=== PATIENT | female | born 1990 | race Caucasian/White ===

== ENCOUNTER 2018-08-23 21:43 | Emergency (ER) | payer OTHER, MEDICAID, SELFPAY ==
--- NOTE | 2018-08-23 21:50 | DI.RAD.S_ITS ---
PROCEDURE: XR ANKLE LT MIN 3V INDICATIONS: pain after twist TECHNIQUE: 3 views of the ankle were acquired. COMPARISON: [facility], CR, ANKLE MIN 3VW (RT), 06/28/2013, 10:10. [facility], CR, ANKLE MIN 3VW (RT), 11/09/2008, 17:57. FINDINGS: Bones: Subtle 3 mm linear calcific density projecting along the lateral aspect of the hindfoot. No definite donor site seen. Cannot entirely exclude cortical avulsion fracture fragment. Elsewhere, no fractures or dislocations. Ankle mortise is normally aligned. No suspicious bony lesions. Soft tissues: No tibiotalar joint effusion. Achilles tendon appears normal. IMPRESSION: Questionable, subtle cortical fracture fragment along the lateral aspect of the hindfoot, although technically indeterminate. Please correlate clinically 2 point tenderness and if there is sufficient clinical suspicion, repeat radiographs in 10 days could be obtained. Elsewhere, no fracture. Dictated by: Berlin Barlow M.D. on 08/24/2018 at 8:01 Approved by: Berlin Barlow M.D. on 08/24/2018 at 8:04
--- NOTE | 2018-08-23 21:52 | ED.LOWEXIN ---
HPI - Extremity Injury (Lower) General Chief Complaint: Extremity Injury, Lower Stated Complaint: LT ANKLE INJURY Time Seen by Provider: 08/23/18 21:50 Source: patient Mode of arrival: ambulatory Limitations: no limitations History of Present Illness HPI Narrative: 28-year-old female who is here for evaluation of left ankle injury. She states she was going down a flight of stairs were she best last step and inverted her left ankle. Has been unable to ambulate on it since then. Has pain on the outside of her ankle. No prior injury. Did not hit her head. Review of Systems Constitutional Denies fever(s) Cardiovascular Denies chest pain and Denies dyspnea Respiratory Denies dyspnea Gastrointestinal Gastrointestinal: Denies abdominal pain Genitourinary Denies dysuria Musculoskeletal Denies tingling Comments: Left ankle injury Integumentary/Breasts Denies lesions and Denies rash Neurologic Denies sensory deficit, Denies tingling and Denies paresthesias Hematologic/Lymphatic Comments: Not on anticoagulation PFSH Medical History Healthy adult (Acute) Surgical History No pertinent past surgical history (Acute) Social History Smoking Status: Never smoker Exam Initial Vital Signs Initial Vital Signs: Vital Signs Temperature 97.1 F L 08/23/18 21:56 Pulse Rate 88 08/23/18 21:56 Respiratory Rate 18 08/23/18 21:56 Blood Pressure 107/69 08/23/18 21:56 Pulse Oximetry 100 08/23/18 21:56 Const General: cooperative, healthy appearing, comfortable, well developed, well groomed and No acute distress Orientation: alert, awake and oriented x3 HENMT Head: normal to inspection and normocephalic Resp Effort & Inspection: normal respiratory effort Cardio Rate: regular rate Pulses: dorsalis pedis present on the left GI Inspection: non-distended Palpation: soft Skin Lesions: no lesions Rashes: no rashes Neuro Motor: muscle tone normal throughout Sensory Exam: no sensory deficits noted Extrem General: normal to inspection and capillary refill normal Other: No proximal fibula tenderness on the left. Tender to palpation inferior posterior to the lateral malleolus. Does have some tenderness to palpation inferior to the medial malleolus. Rest of the foot and ankle unremarkable. Psych Appearance: grossly normal and well kempt Course Orders Ordered: ED Orders 08/23/18 21:50 XR ankle LT min 3V Stat Vital Signs - 8 hr 08/23/18 21:56 08/23/18 23:33 Temperature 97.1 F L Pulse Rate 88 84 Respiratory Rate 18 18 Blood Pressure 107/69 110/70 Pulse Oximetry 100 98 MDM - Extremity Injury (Lower) Imaging Data X-ray ankle: Attestation: I personally reviewed and interpreted this imaging study as follows: My impression: No fractures No dislocations MDM Narrative Medical decision making narrative: Neurovascular intact No fractures noted on the x-ray. Patient limited to Tylenol secondary to her status. Was given an Samuel bandage and crutches here. She was instructed that she can walk on her ankle as needed. She was given return precautions. She expressed understanding and agreement with plan. Discharge Plan Departure Patient Disposition: Home Clinical Impression: Left ankle sprain Discharge Date/Time: 08/23/18 23:36 Interventions: ED Discharge Assessment Last Done: 08/23/18 23:33 Instructions: DI for Ankle Sprain, How To Perform RICE (Rest, Ice, Compress, Elevate) Activity Restrictions/Additional Instructions: You can take Tylenol for any discomfort. Keep your leg elevated. Use ice as needed. Use the crutches as needed however you can put weight on your ankle. Return to the emergency department for any new or worsening symptoms Stand Alone Forms: Work Release Note
[2018-08-23 21:56] VITALS: BP 107/69; PULSE 88; RESP 18; TEMP 36.2; O2SAT 100; BMI 22.4
--- NOTE | 2018-08-23 23:32 | PC.NURSE ---
steph wrap to left ankle.cms intact.
[2018-08-23 23:33] VITALS: BP 110/70; PULSE 84; RESP 18; O2SAT 98
== END 2018-08-23 23:36 | disposition home or self-care (01) ==
PROVIDERS: Emergency Provider Emergency Medicine
DX: S93.402A Sprain of unspecified ligament of left ankle, initial encounter (principal); W18.43XA Slipping, tripping and stumbling without falling due to stepping from one level to another, initial encounter
CPT/HCPCS: 73610; 99282; 99283

== ENCOUNTER 2019-12-07 17:25 | Emergency (ER) | payer OTHER, MEDICAID, SELFPAY ==
[2019-12-07 17:33] VITALS: BP 102/65; PULSE 81; RESP 16; TEMP 36.6; O2SAT 99; BMI 19.2
--- NOTE | 2019-12-07 17:54 | ED_ITS ---
HPI - General Adult General Chief complaint: Upper Respiratory Symptoms Stated complaint: states sinus infection,cough,thinks arm pit infect Time Seen by Provider: 12/07/19 17:25 Source: patient Mode of arrival: Ambulatory Limitations: no limitations History of Present Illness HPI narrative: 29-year-old female here for evaluation of sinus congestion, sore throat, postnasal drip for the past 3 days. Has taken Tylenol cold and Sinus without any improvement. Also is complaining of a rash under her right armpit. She states she cut her arm while shaving a couple days ago. Has been using a topical antibiotic ointment without any improvement. She states that she notes it is very itchy. Related Data Previous Rx's Medication Instructions Recorded amoxicillin 500 mg PO BID 7 Days #14 cap 12/07/19 nystatin 1 applictn TOP TID #15 gram 12/07/19 Allergies Allergy/AdvReac Type Severity Reaction Status Date / Time acetaminophen [From Vicodin] Allergy Severe Itchy, Verified 09/02/18 16:43 rash adhesive tape Allergy Severe Skin break Verified 09/02/18 16:43 down hydrocodone [From Vicodin] Allergy Severe Itchy, Verified 09/02/18 16:43 rash Review of Systems Constitutional Constitutional: Denies fever(s) ENT Ears, Nose, Mouth, and Throat: Denies vertigo, Denies dizziness, Reports post nasal drip, Reports sinus pressure and Reports sore throat Comments: Sinus congestion Cardiovascular Cardiovascular: Denies chest pain and Denies dyspnea Respiratory Respiratory: Denies dyspnea Integumentary/Breasts Skin/Breast: Reports rash (Right armpit) Neurologic Neurologic: Denies behavioral changes, Denies vertigo and Denies dizziness Psychiatric Psychiatric: Denies behavioral changes Patient History Medical History Healthy adult (Acute) Surgical History No pertinent past surgical history (Acute) Social History Smoking Status: Never smoker Smoking Status: Never smoker alcohol intake frequency: 0-2 drinks per day Substance Use Type: does not use Exam Initial Vital Signs Initial Vital Signs: Vital Signs Temperature 97.8 F 12/07/19 17:33 Pulse Rate 81 12/07/19 17:33 Respiratory Rate 16 04/04/20 17:33 Blood Pressure 102/65 12/07/19 17:33 Pulse Oximetry 99 12/07/19 17:33 Const General: cooperative, comfortable, well developed and well groomed Limitations: mental status not altered [facility] Head: normal to inspection and normocephalic Ears: TM's normal bilaterally Nose: external nose normal Mouth: oral mucosae normal Throat: postnasal drainage Resp Effort & Inspection: normal respiratory effort Auscultation: clear to auscultation bilaterally Cardio Rate: regular rate Rhythm: regular rhythm Skin Other: Patient with a round area of erythema in her right armpit that does not light up under a Wood's lamp. No vesicles. No pustules. No breaks in the sk in. No surrounding erythema. Neuro General: alert, awake and oriented x3 Course Vital Signs Vital signs: Vital Signs - 8 hr 12/07/19 17:33 Temperature 97.8 F Pulse Rate 81 Respiratory Rate 16 Blood Pressure 102/65 Pulse Oximetry 99 Medical Decision Making MDM Narrative Medical decision making narrative: Patient does have signs of an upper respiratory infection with postnasal drip. Has only had symptoms for the past 3 days. We did discuss the use of decongestants at home to include Claritin and Flonase. She expressed understanding of this. I will give her prescription for antibiotics however she will hold on this into the other medications initially if this does not improve in the next week she will start taking the antibiotics. The redness under her right arm does not appear to be cellulitis. It does not light up under a Wood's lamp however does have very strong appearance of a fungal infection. Will start on a topical medication. We discussed return precautions and follow-up instructions with this. She expressed understanding and agreement. Discharge Plan Departure Patient Disposition: Home Clinical Impression: Skin rash Upper respiratory infection Qualifiers: URI type: unspecified URI Qualified Code(s): J06.9 - Acute upper respiratory infection, unspecified Instructions: DI for Rash Activity Restrictions/Additional Instructions: I do recommend that before you take the antibiotics that you try decongestant such as Claritin or Lynda or Zyrtec or the generic version of these medications. Also start taking either Flonase or Nasonex like we discussed. If your symptoms are not improved within the next week start taking the antibiotics as directed. Use the topical antifungal like we discussed. Return to the emergency department for any new or worsening symptoms Prescriptions: New amoxicillin 500 mg capsule 500 mg PO BID 7 Days Qty: 14 RF: 0 nystatin 100,000 unit/gram cream 1 applictn TOP TID Qty: 15 RF: 0
== END 2019-12-07 18:04 | disposition home or self-care (01) ==
PROVIDERS: Emergency Provider Emergency Medicine
DX: J06.9 Acute upper respiratory infection, unspecified (principal); R21 Rash and other nonspecific skin eruption
CPT/HCPCS: 99281; 99282

== ENCOUNTER 2020-10-19 13:46 | Emergency (ER) | payer OTHER, MEDICAID, SELFPAY ==
[2020-10-19 13:55] VITALS: BP 107/70; PULSE 82; RESP 16; TEMP 35.9; O2SAT 100; BMI 20.5
== END 2020-10-19 14:51 | disposition left against medical advice (07) ==
PROVIDERS: Emergency Provider Emergency Medicine; PCP Family Medicine
CPT/HCPCS: 99281

== ENCOUNTER 2021-01-20 21:52 | Emergency (ER) | payer OTHER, MEDICAID, SELFPAY ==
[2021-01-20 22:42] VITALS: BP 122/65; PULSE 76; RESP 18; TEMP 37; O2SAT 99; BMI 21.0
[2021-01-21] MEDS: valACYclovir 500 MG TABLET 1000 MG PO (00:04)
--- NOTE | 2021-01-21 05:18 | ED.SKABFB ---
HPI - Skin/Abscess/Foreign Bdy General Chief complaint: Skin/Abscess/Foreign Body Stated complaint: blisters on face & scalp Time Seen by Provider: 01/20/21 23:14 Source: patient Mode of arrival: Ambulatory Limitations: no limitations History of Present Illness HPI narrative: 30-year-old woman with no significant medical history presents complaining of a rash on the lower side of her left cheek. She used a new dermatologic product with salicylic acid in that last night and woke up in the middle night with burning pain in the lower portion of her face. She notes that she has been under increased stressors over the last 2 days. She has a history of mild acne. She describes no fevers or general myalgias. No cough, abdominal pain dysuria vomiting, diarrhea palpitations or chest pain. Related Data Previous Rx's Medication Instructions Recorded nystatin 1 applictn TOP TID #15 gram 12/07/19 valacyclovir 1,000 mg PO TID #21 tab 01/20/21 Allergies Allergy/AdvReac Type Severity Reaction Status Date / Time acetaminophen [From Vicodin] Allergy Severe Itchy, Verified 01/20/21 22:42 rash adhesive tape Allergy Severe Skin break Verified 01/20/21 22:42 down hydrocodone [From Vicodin] Allergy Severe Itchy, Verified 01/20/21 22:42 rash Review of Systems Review of Systems Narrative: Remainder of complete review of systems is otherwise unremarkable except for that included in the HPI. Patient History Medical History Healthy adult Surgical History H/O hysterectomy for benign disease Social History Smoking Status: Never smoker Smoking Status: Never smoker alcohol intake frequency: 0-2 drinks per day Substance Use Type: does not use Exam Narrative Exam Narrative: General: Alert appropriate in no acute distress Respiratory: Able to speak in full sentences, no obvious respiratory distress Cardiac exam: Regular rate and rhythm no murmurs Skin: Mild acne scars over her face. The left lower face in the V1 distribution she has a collection of fascicular lesions on an erythematous base that appear to be herpetic in nature. There is no involvement in the mid face or upper face. Neck: She has minor left-sided cervical adenopathy Neurologic: Grossly intact no obvious asymmetries or abnormalities Psych: appropriate insight and affect, cooperative Initial Vital Signs Initial Vital Signs: Vital Signs Temperature 98.6 F 01/20/21 22:42 Pulse Rate 76 01/20/21 22:42 Respiratory Rate 18 01/20/21 22:42 Blood Pressure 122/65 01/20/21 22:42 Pulse Oximetry 99 01/20/21 22:42 Course Orders Ordered: Discontinued Medications Valacyclovir HCl (Valacyclovir 500 Mg Tablet) 1,000 mg PO NOW ONE Stop: 01/20/21 23:43 Last Admin: 01/21/21 00:04 Dose: 1,000 mg Documented by: ANUSHA Vital Signs Vital signs: Vital Signs - 8 hr 01/20/21 22:42 Temperature 98.6 F Pulse Rate 76 Respiratory Rate 18 Blood Pressure 122/65 Pulse Oximetry 99 MDM - Skin/Abscess/Foreign Bdy MDM Narrative Medical decision making narrative: 30-year-old woman with newly developing clustered vesicular lesions in a V1 distribution left side of her face consistent with zoster. She has been under increased stressors lately but has no other significant medical issues. She notes that she does have herpes lesion with occasional breakouts on the right side of her upper lip that is not currently bothering her. She will be started on valacyclovir and is carefully cautioned about the Infectious Disease nature of shingles and the fact that she can not usually give her children chickenpox from the vesicular fluid. She states clear understanding of this. She is safe for home discharge Discharge Plan Departure Patient Disposition: Home Clinical Impression: Herpes zoster Qualifiers: Herpes zoster complications: without complications Qualified Code(s): B02.9 - Zoster without complications Instructions: DI for Shingles Activity Restrictions/Additional Instructions: It looks like you are developing shingles. As the lesions turn into little blisters, the liquid inside the blisters is very contagious for chickenpox. Please make sure that you keep your children away from your face and you wash her hands after you touch her face. Use the entire course of Valacyclovir to reduce the risk of complications. The prescription has been electronically transmitted to [facility] for you to cook pickled meat tomorrow Using 400 mg of ibuprofen (2 [id number] pills) and 1 Tylenol every 6 hours can be very helpful in controlling pain. Prescriptions: New valacyclovir 1 gram tablet 1,000 mg PO TID Qty: 21 RF: 0 No Action nystatin 100,000 unit/gram cream 1 applictn TOP TID Qty: 15 RF: 0 Referrals: Yelena Fierro DO [Primary Care Provider] -
== END 2021-01-21 00:11 | disposition home or self-care (01) ==
PROVIDERS: Emergency Provider Emergency Medicine; PCP Family Medicine
DX: B02.9 Zoster without complications (principal)
CPT/HCPCS: 99283

== ENCOUNTER 2021-04-06 01:55 | Emergency (ER) | payer OTHER, MEDICAID, SELFPAY ==
[2021-04-06 02:03] VITALS: BP 119/66; PULSE 93; RESP 18; TEMP 36.6; O2SAT 98; BMI 21.0
[2021-04-06 02:30] LABS: COVID19 -Nasal RAPID Negative (Negative)
--- NOTE | 2021-04-06 02:40 | ED_ITS ---
HPI - Headache General Chief Complaint: Headache Stated Complaint: Fever, stuffy nose, headache Time Seen by Provider: 04/06/21 02:00 Mode of arrival: Ambulatory Limitations: no limitations History of Present Illness HPI Narrative: 31F Nonsmoker with noncontributory medical history presents with a chief complaint of some runny nose, nasal congestion and sinus pressure over the course of the day. She denies any fever chills. She has no chest pain or trouble breathing. She has no nausea, vomiting or diarrhea. She denies any exposure to persons known to be COVID positive. She has not been vaccinated. Related Data Previous Rx's Medication Instructions Recorded nystatin 100,000 unit/gram topical 1 applictn TOP TID #15 gram 12/07/19 cream valacyclovir 1 gram tablet 1,000 mg PO TID #21 tab 01/20/21 Allergies Allergy/AdvReac Type Severity Reaction Status Date / Time adhesive tape Allergy Severe Skin break Verified 04/06/21 02:02 down hydrocodone [From Vicodin] Allergy Severe Itchy, Verified 04/06/21 02:02 rash Review of Systems Review of Systems Narrative: GENERAL: See HPI HEENT: See HP RESPIRATORY: See HPI CARDIOVASCULAR: Denies chest pain, palpitations, orthopnea, edema, GASTROINTESTINAL: Denies nausea, vomiting, abdominal pain, diarrhea, constipation, melena. : Denies dysuria, frequency, incontinence, hematuria, urinary retention. MUSCULOSKELETAL: denies weakness, joint pain, or bony pain SKIN: Denies rash, skin lesions, or other NEUROLOGIC: Denies weakness, headache, numbness, change in speech, confusion, seizures, incoordination. PSYCHIATRIC: No concerning psychosocial issues. 12 point review of systems is negative except for those stated above Patient History Medical History Healthy adult Surgical History H/O hysterectomy for benign disease Social History Smoking Status: Never smoker Smoking Status: Never smoker alcohol intake frequency: holidays/special occasions only Substance Use Type: does not use Exam Narrative Exam Narrative: GEN: AOx3 and in mild distress, no evidence of increased work of breathing HEAD: sinus pain to percussion. Frontal greater than maxillary NECK: No neck pain, no meningeal signs EYES: Pupils are equal, round, and reactive to light and accommodation. Extraoccular muscles are intact bilaterally. There is no subconjunctival hemorrhage or exudate. CHEST: Lungs are clear to auscultation bilaterally and free of wheezes, rales, or rhonchi. Heart rate is regular rhythm, there are no murmurs, clicks, rubs, or gallops. There is no chest wall tenderness. ABD: Abdomen is soft and nontender. There is no guarding or rebound. Bowel sounds are normal in all 4 quadrants. There is no mass or organomegaly. EXT: Full painless ROM of all extremities with no loss of sensation or strength. SKIN: Warm, pink, and dry. No erythema or rash Initial Vital Signs Initial Vital Signs: Vital Signs Temperature 97.8 F 04/06/21 02:03 Pulse Rate 93 H 04/06/21 02:03 Respiratory Rate 18 04/06/21 02:03 Blood Pressure 119/66 04/06/21 02:03 Pulse Oximetry 98 04/06/21 02:03 Course Orders Ordered: ED Orders 04/06/21 02:10 COVID19 -Nasal swab/Pre-Proc Stat Vital Signs Vital signs: Vital Signs - 8 hr 04/06/21 02:03 Temperature 97.8 F Pulse Rate 93 H Respiratory Rate 18 Blood Pressure 119/66 Pulse Oximetry 98 MDM - Headache Lab Data Labs: Lab Results 04/06/21 Range/Units 02:10 SARS-CoV-2 (PCR) Negative (Negative) Discharge Plan Departure Patient Disposition: Home Clinical Impression: Sinus complaint Instructions: DI for Sinus Headache Activity Restrictions/Additional Instructions: *You have been diagnosed with [sinus headache without indication for antibiotic. COVID test is negative] *What to do: *Please continue to take your regular medications as directed. * consider [id number] cough cold and flu medications that include an antihistamine and decongestant which will help with your symptoms as we discussed *Please follow up with your primary care provider in 2-3 days, call for an appointment. Let them know you were seen in the Emergency Department and that we ask that you be seen in follow up. We will electronically transmit a record of today's note if your PCP is in our system *If you do not have a primary care provider please contact the [facility] Resource line at [phone]. They will ask some questions about your medical history and help get you set up with a doctor in the community. *Return to Emergency Department if you should have any new, worsening or concerning symptoms, such as [fever greater than 101 F, shaking chills, worsening pain, persistent vomiting or other bothersome symptoms] Prescriptions: No Action valacyclovir 1 gram tablet 1,000 mg PO TID Qty: 21 RF: 0 nystatin 100,000 unit/gram cream 1 applictn TOP TID Qty: 15 RF: 0 Referrals: Yelena Fierro DO [Primary Care Provider] -
== END 2021-04-06 02:40 | disposition home or self-care (01) ==
PROVIDERS: Emergency Provider Emergency Medicine; PCP Family Medicine
DX: R09.81 Nasal congestion (principal); Z20.822 Contact with and (suspected) exposure to COVID-19
CPT/HCPCS: 87635; 99281; 99282; C9803

== ENCOUNTER 2021-05-04 01:47 | Emergency (ER) | payer OTHER, MEDICAID, SELFPAY ==
[2021-05-04 02:18] VITALS: BP 106/68; PULSE 69; RESP 15; TEMP 36.7; O2SAT 100; BMI 21.0
--- NOTE | 2021-05-04 02:36 | ED.SKABFB ---
HPI - Skin/Abscess/Foreign Bdy General Chief complaint: Skin/Abscess/Foreign Body Stated complaint: broke out with a rash on right cheek Time Seen by Provider: 05/04/21 02:36 Source: patient Mode of arrival: Ambulatory Limitations: no limitations History of Present Illness HPI narrative: 31-year-old otherwise healthy young woman with a history of occasional cold sore in 2 months ago of vesicular lesion on her right cheek that was thought to be shingles. She was started on valacyclovir. Has recurrence of the same rash same space approximately 2 months later. She notes that she has been under significant amount of stress lately. She felt some burning today and when she took her mask off later this afternoon she noticed the vesicular lesions. She describes no fever, cough, chills, abdominal pain, vomiting or diarrhea. Related Data Previous Rx's Medication Instructions Recorded nystatin 100,000 unit/gram topical 1 applictn TOP TID #15 gram 12/07/19 cream valacyclovir 1 gram tablet 1,000 mg PO TID #21 tab 01/20/21 valacyclovir 1 gram tablet 1,000 mg PO DAILY #90 tab 05/04/21 valacyclovir 1 gram tablet 1,000 mg PO DAILY #90 tab 05/04/21 Allergies Allergy/AdvReac Type Severity Reaction Status Date / Time adhesive tape Allergy Severe Skin break Verified 04/06/21 02:02 down hydrocodone [From Vicodin] Allergy Severe Itchy, Verified 04/06/21 02:02 rash Review of Systems Review of Systems Narrative: Remainder of complete review of systems is otherwise unremarkable except for that included in the HPI. Patient History Medical History (Updated 05/04/21 @ 07:05 by Tiny Oconnor MD) Healthy adult Herpes Surgical History H/O hysterectomy for benign disease Social History Smoking Status: Never smoker Smoking Status: Never smoker alcohol intake frequency: 0-2 drinks per day Substance Use Type: does not use Exam Narrative Exam Narrative: General: Alert appropriate in no acute distress HEENT: 2 x 2 cm patch of vesicular lesions on an erythematous base just to the right of her lips. Vermilion border is not involved. No cervical adenopathy Respiratory: Able to speak in full sentences, no obvious respiratory distress Skin: No obvious rashes, warm and dry Neurologic: Grossly intact no obvious asymmetries or abnormalities Psych: appropriate insight and affect, cooperative Initial Vital Signs Initial Vital Signs: Vital Signs Temperature 98.1 F 05/04/21 02:18 Pulse Rate 69 05/04/21 02:18 Respiratory Rate 15 05/04/21 02:18 Blood Pressure 106/68 05/04/21 02:18 Pulse Oximetry 100 05/04/21 02:18 Course Vital Signs Vital signs: Vital Signs - 8 hr 05/04/21 02:18 Temperature 98.1 F Pulse Rate 69 Respiratory Rate 15 Blood Pressure 106/68 Pulse Oximetry 100 MDM - Skin/Abscess/Foreign Bdy MDM Narrative Medical decision making narrative: 31-year-old woman with recurrent fascicular rash her lower right cheek. Given that is recurrent now in less than 2 months in the exact same area without widening distribution I suspect that this is a type 1 herpes rather than a zoster. Will have her on valacyclovir b.i.d. for 7 days and then continue daily suppressive therapy for 90 days given the rapid recurrence of this 2nd episode. She will follow-up with her primary care physician. She is safe for home discharge Discharge Plan Departure Patient Disposition: Home Clinical Impression: Herpes Instructions: Cold Sores Activity Restrictions/Additional Instructions: Thank you for coming in today This is clearly a herpes outbreak with the blister type rash. I suspect that it is a herpes type 1, cold sore version. People tend to get recurrent outbreaks of this with fevers, sun exposure, increased stress or other things that would decrease your immune system. Because this is your 2nd outbreak in less than 2 months I am going to suggest that we treat with valacyclovir 1 g twice a day for 7 days and then continue once a day for 3 months. After that you likely will be able to simply have a prescription available to start if you have recurrent symptoms rather than needing to continue daily medication. Please discuss the dosing with Dr. Fierro with your next visit. While you have the blisters, the liquid inside the blisters is very infectious. Please make sure that you are not rubbing your cheek or snuggling your child until all of the blisters are completely scabbed over. You may find that using antibiotic ointment such as Neosporin over the rash once it is scabbed over help that heal faster and cause less itching and cracking. 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
== END 2021-05-04 03:03 | disposition home or self-care (01) ==
PROVIDERS: Emergency Provider Emergency Medicine; PCP Family Medicine
DX: B00.9 Herpesviral infection, unspecified (principal)
CPT/HCPCS: 99281

== ENCOUNTER 2021-12-25 20:32 | Emergency (ER) | payer OTHER, MEDICAID, SELFPAY ==
[2021-12-25 20:42] VITALS: BP 93/67; PULSE 75; RESP 18; TEMP 36.6; O2SAT 98; BMI 19.5
--- NOTE | 2021-12-25 20:58 | DI.RAD.S_ITS ---
PROCEDURE: XR SHOULDER RT MIN 2V INDICATIONS: fell down stairs, pain to R shoulder/scapula TECHNIQUE: 3 views of the shoulder were acquired. COMPARISON: None. FINDINGS: Bones: No fractures or dislocations. No suspicious bony lesions. Visualized ribs appear intact. Soft tissues: No suspicious soft tissue calcifications. IMPRESSION: No trauma found. Dictated by: Evan Hagen M.D. on 12/25/2021 at 21:43 Approved by: Evan Hagen M.D. on 12/25/2021 at 21:43
--- NOTE | 2021-12-25 20:59 | DI.RAD.S_ITS ---
PROCEDURE: XR LUMBAR SPINE 2-3V INDICATIONS: fell down stairs, pain to R lumbar/sacral back TECHNIQUE: To views of the lumbar spine were acquired. COMPARISON: None. FINDINGS: Bones: 5 [id number] vertebrae are present. There is normal bony alignment. No vertebral body compression fractures. No suspicious bony lesions. Soft tissues: Overlying bowel gas pattern is normal. No suspicious soft tissue calcifications. IMPRESSION: No trauma found, source of pain after fall is not identified. Dictated by: Evan Hagen M.D. on 12/25/2021 at 21:42 Approved by: Evan Hagen M.D. on 12/25/2021 at 21:43
--- NOTE | 2021-12-25 21:00 | DI.RAD.S_ITS ---
PROCEDURE: XR ANKLE RT MIN 3V INDICATIONS: fell down stairs, pain TECHNIQUE: 3 views of the ankle were acquired. COMPARISON: [facility], CR, XR ANKLE LT MIN 3V, 08/23/2018, 22:14. FINDINGS: Bones: No fractures or dislocations. Ankle mortise is normally aligned. No suspicious bony lesions. Soft tissues: No tibiotalar joint effusion. Achilles tendon appears normal. IMPRESSION: No trauma found. Dictated by: Evan Hagen M.D. on 12/25/2021 at 21:42 Approved by: Evan Hagen M.D. on 12/25/2021 at 21:42
--- NOTE | 2021-12-25 21:52 | ED.FALL ---
HPI - Fall General Chief Complaint: Fall Stated Complaint: fell down stairs, rt shoulder injury Time Seen by Provider: 12/25/21 21:49 Source: patient Mode of arrival: Ambulatory History of Present Illness HPI Narrative: 31-year-old female here for evaluation of injuries that she sustained where she stated that she was helping a friend move and fell from the top to a middle portion of a flight of stairs. She now reports right ankle pain and lower back discomfort and right shoulder pain. She did take some ibuprofen prior to arrival. She did not hit her head. There was no loss of consciousness. Related Data Previous Rx's Medication Instructions Recorded nystatin 100,000 unit/gram topical 1 applictn TOP TID #15 gram 12/07/19 cream valacyclovir 1 gram tablet 1,000 mg PO TID #21 tab 01/20/21 valacyclovir 1 gram tablet 1,000 mg PO DAILY #90 tab 05/04/21 valacyclovir 1 gram tablet 1,000 mg PO DAILY #90 tab 05/04/21 Allergies Allergy/AdvReac Type Severity Reaction Status Date / Time adhesive tape Allergy Severe Skin break Verified 04/06/21 02:02 down hydrocodone [From Vicodin] Allergy Severe Itchy, Verified 04/06/21 02:02 rash Review of Systems Constitutional Constitutional: Reports system reviewed and no additional complaints, except as documented Musculoskeletal Musculoskeletal: Reports system reviewed and no additional complaints, except as documented Integumentary/Breasts Skin/Breast: Reports system reviewed and no additional complaints, except as documented Neurologic Neurologic: Reports system reviewed and no additional complaints, except as documented Hematologic/Lymphatic On Anticoagulants: No Patient History Medical History Healthy adult Herpes Surgical History H/O hysterectomy for benign disease Social History Smoking Status: Never smoker Smoking Status: Never smoker alcohol intake frequency: 0-2 drinks per day Substance Use Type: does not use Exam Initial Vital Signs Initial Vital Signs: Vital Signs Temperature 97.9 F 12/25/21 20:42 Pulse Rate 75 12/25/21 20:42 Respiratory Rate 18 12/25/21 20:42 Blood Pressure 93/67 12/25/21 20:42 Pulse Oximetry 98 04/23/22 20:42 HENMT Head: normal to inspection and normocephalic Resp Effort & Inspection: normal respiratory effort Back/Spine/Pelvis Thoracic/Lumbar Spine: paraspinal tenderness (Right lumbar region) Neuro General: patient alert, patient awake, patient oriented x3 and moves all extremities Extrem Other: Tenderness to palpation over the anterior portion of the right ankle. Lateral malleolus and medial malleolus and lives from joint all unremarkable. Patient has mild tenderness to palpation of the posterior aspect of the right shoulder. Has full range of motion of the right shoulder. Course Orders Ordered: ED Orders 12/25/21 20:58 XR shoulder RT min 2V Stat 12/25/21 20:59 XR lumbar spine 2-3V Stat 12/25/21 21:00 XR ankle RT min 3V Stat Vital Signs Vital signs: Vital Signs - 8 hr 12/25/21 20:42 Temperature 97.9 F Pulse Rate 75 Respiratory Rate 18 Blood Pressure 93/67 Pulse Oximetry 98 MDM - Fall Imaging Data Extremity x-ray #1: Radiologist's Impression: [address] [address] XRay Report Signed Patient: Sandie Thurston MR#: [id number] : 1990 Acct:[id number] Age/Sex: 31 / F Date of Service: 12/25/21 Loc: ED Accession Number: [id number] ?? Procedure: XR shoulder RT min 2V Ordering Provider: Sanjeev Bishop D.O. PROCEDURE:? XR SHOULDER RT MIN 2V ? INDICATIONS:? fell down stairs, pain to R shoulder/scapula ? TECHNIQUE:? 3 views of the shoulder were acquired.? ? COMPARISON:? None. ? FINDINGS:? ? Bones:? No fractures or dislocations.? No suspicious bony lesions.? Visualized ribs appear intact.? ? Soft tissues:? No suspicious soft tissue calcifications.? ? IMPRESSION:? No trauma found. ? ? Dictated by: Evan Hagen M.D. on 12/25/2021 at 21:43 ? ? Approved by: Evan Hagen M.D. on 12/25/2021 at 21:43?? Extremity x-ray #2: Radiologist's Impression: [address] [address] XRay Report Signed Patient: Sandie Thurston MR#: [id number] : 1990 Acct:[id number] Age/Sex: 31 / F Date of Service: 12/25/21 Loc: ED Accession Number: [id number] ?? Procedure: XR ankle RT min 3V Ordering Provider: Sanjeev Bishop D.O. PROCEDURE:? XR ANKLE RT MIN 3V ? INDICATIONS:? fell down stairs, pain ? TECHNIQUE:? 3 views of the ankle were acquired.? ? COMPARISON:? [facility], CR, XR ANKLE LT MIN 3V, 08/23/2018, 22:14. ? FINDINGS:? ? Bones:? No fractures or dislocations.? Ankle mortise is normally aligned.? No suspicious bony lesions.? ? Soft tissues:? No tibiotalar joint effusion.? Achilles tendon appears normal.? ? ? IMPRESSION:? No trauma found. ? ? Dictated by: Evan Hagen M.D. on 12/25/2021 at 21:42 ? ? Approved by: Evan Hagen M.D. on 12/25/2021 at 21:42? lumbar x-ray: Radiologist's Impression: [address] [address] XRay Report Signed Patient: Sandie Thurston MR#: [id number] : 1990 Acct:[id number] Age/Sex: 31 / F Date of Service: 12/25/21 Loc: ED Accession Number: [id number] ?? Procedure: XR lumbar spine 2-3V Ordering Provider: Sanjeev Bishop D.O. PROCEDURE:? XR LUMBAR SPINE 2-3V ? INDICATIONS:? fell down stairs, pain to R lumbar/sacral back ? TECHNIQUE:? To views of the lumbar spine were acquired.? ? COMPARISON:? None. ? FINDINGS:? ? Bones:? 5 [id number] vertebrae are present.? There is normal bony alignment.? No vertebral body compression fractures.? No suspicious bony lesions.? ? Soft tissues:? Overlying bowel gas pattern is normal.? No suspicious soft tissue calcifications.? ? ? IMPRESSION:? No trauma found, source of pain after fall is not identified. ? ? Dictated by: Evan Hagen M.D. on 12/25/2021 at 21:42 ? ? Approved by: Eavn Hagen M.D. on 12/25/2021 at 21:43? MDM Narrative Medical decision making narrative: No indication of fractures on x-ray. No skin lesions. Patient is ambulatory. No neck pain. Patient was safely discharged home. No indication for further radiologic studies. She is given return precautions. She expressed understanding and agreement. Discharge Plan Departure Patient Disposition: Home Clinical Impression: Ankle pain, right, Acute pain of right shoulder, Lower back pain Instructions: How To Perform RICE (Rest, Ice, Compress, Elevate) Activity Restrictions/Additional Instructions: There were no fractures noted on the x-rays so you can walk like normal. Putting ice over the areas that are injured is going to be beneficial. You can take Tylenol/ibuprofen for discomfort. Return to the emergency department for any new or worsening symptoms. Prescriptions: No Action valacyclovir 1 gram tablet 1,000 mg PO TID Qty: 21 0RF valacyclovir 1 gram tablet 1,000 mg PO DAILY Qty: 90 0RF Rx Instructions: Bid for the first 7 days valacyclovir 1 gram tablet 1,000 mg PO DAILY Qty: 90 0RF Rx Instructions: BID for the first 7 days nystatin 100,000 unit/gram cream 1 applictn TOP TID Qty: 15 0RF Referrals: Yelena Fierro DO [Primary Care Provider] -
== END 2021-12-25 21:58 | disposition home or self-care (01) ==
PROVIDERS: Emergency Provider Emergency Medicine; PCP Family Medicine
DX: M25.571 Pain in right ankle and joints of right foot (principal); M25.511 Pain in right shoulder; M54.50 Low back pain, unspecified
CPT/HCPCS: 72100; 73030; 73610; 99281; 99283